=== PATIENT | male | born 1975 | race Caucasian/White ===

== ENCOUNTER → 2018-01-18 | Outpatient (CLI) | payer BC ==
[2014-06-17 05:20] VITALS: BP 117/77
[~2018-01-18] MED LIST: CRESTOR20 MG PO; FENO134C PO; OMEP40CA5 PO
--- NOTE | 2018-01-18 11:10 | RAD ---
Complete abdominal ultrasound 01/18/2018 10:00 AM Clinical History: ELEVATED LFT'S Technique: Ultrasound examination of the abdomen was performed, and multiple static images were submitted for review. Comparison: None available Findings: The gallbladder is unremarkable in appearance without evidence of wall thickening, stones, or sludge. Visualized pancreas is grossly unremarkable. Visualized portions of the aorta and IVC are grossly unremarkable. The liver is mildly enlarged measuring 19 cm longitudinally. The liver is diffusely echogenic suggesting hepatic steatosis. Portal venous flows in the normal direction. The common bile duct is nondilated measuring 4 mm in diameter. The right kidney is normal in appearance measuring 12.7 cm in length. The spleen is normal in size measuring 10 cm longitudinally. The left kidney is normal in appearance measuring 11.2 cm in length. IMPRESSION: 1. Mild hepatomegaly. Probable hepatic steatosis. 2. No evidence of acute intra-abdominal abnormality is identified. Electronically signed by: Dalton Ballesteros MD (01/18/2018 11:06 AM) [id number]
== END | disposition home or self-care (01) ==
LOC: US 09:54
PROVIDERS: ATTEND Family Medicine
DX: R16.0 Hepatomegaly, not elsewhere classified (principal); R94.5 Abnormal results of liver function studies
CPT/HCPCS: 76700